=== PATIENT | female | born 1935 | race Caucasian/White ===

== ENCOUNTER 2017-02-11 07:17 | Day surgery (SDC) | payer OTHER ==
[2017-02-11] MEDS ORDERED: PROPOFOL 20 ML ONE ×3 (07:45)
[2017-02-11] MEDS ORDERED: LIDOCAINE HCL 2% (20ML MULTI-DOSE VIAL) NR ONE (07:45)
[2017-02-11 07:58] VITALS: BMI 30.4
[2017-02-11 09:08] VITALS: TEMP 97.8
[2017-02-11 10:18] VITALS: BP 121/94; PULSE 60
--- NOTE | 2017-02-12 13:10 | PATH ---
Surgical Pathology Report Patient Name: SOLANE LENNON [facility] Rec. #: [id number] /Age/Gender: 1935 (Age: 81) / F Account: [id number] Location: U-ENDOSCOPY Taken: 02/11/2017 Received: 02/11/2017 Reported: 02/12/2017 Physicians: Chuy Nolasco M.D. Specimen(s) Received A: BX ANTRUM B: BX DESCENDING COLON POLYP Clinical History Epigastric pain, colon screening Bile reflux, gastritis, colon diverticula, colon polyp Final Diagnosis A. STOMACH, ANTRUM, BIOPSY: GASTRIC ANTRAL MUCOSA WITH MODERATE CHRONIC GASTRITIS AND REACTIVE GASTROPATHY. IMMUNOSTAIN FOR H. PYLORI IS NEGATIVE FOR ORGANISMS. B. COLON, DESCENDING, POLYP, BIOPSY: HYPERPLASTIC POLYP WITH FOCAL ADENOMATOUS CHANGE. Electronically Signed Vic Amanda M.D. Gross Description A. Received in formalin, labeled "biopsy antrum" is a kearns, irregular portion of soft tissue measuring 0.3 cm in greatest dimension. The specimen is submitted in toto in one cassette. B. Received in formalin, labeled "biopsy descending colon polyp" is a kearns, irregular portion of soft tissue measuring 0.4 cm in greatest dimension. The specimen is submitted in toto in one cassette. 02/11/201702/11/2017
== END 2017-02-11 10:18 | disposition home or self-care (01) ==
LOC: JASU-ENDO 07:17
PROVIDERS: ATTEND Internal Medicine Gastroenterology
PROC: 0DB68ZX Excision of Stomach, Via Natural or Artificial Opening Endoscopic, Diagnostic (ICD-10-PCS; 2017-02-11)
PROC: 0DBM8ZX Excision of Descending Colon, Via Natural or Artificial Opening Endoscopic, Diagnostic (ICD-10-PCS; principal; 2017-02-11 08:00)
DX: Z12.11 Encounter for screening for malignant neoplasm of colon (principal); D12.4 Benign neoplasm of descending colon; K64.8 Other hemorrhoids; K57.30 Diverticulosis of large intestine without perforation or abscess without bleeding; K29.50 Unspecified chronic gastritis without bleeding
CPT/HCPCS: 88305-TC; 88342-TC